=== PATIENT | male | born 1975 | race Caucasian/White ===

== ENCOUNTER → 2017-01-25 | Outpatient (CLI) | payer BC ==
[2017-01-25 17:20] LABS: CALCIUM 8.9 mg/dL (8.5-10.1); CREATININE 1.3 mg/dL (0.7-1.3); GFR 61.1; POTASSIUM 3.8 mmol/L (3.5-5.1)
== END | disposition home or self-care (01) ==
LOC: LAB 16:39
PROVIDERS: ATTEND Nurse Practitioner Occupational Health
DX: Z12.5 Encounter for screening for malignant neoplasm of prostate (principal); N40.1 Benign prostatic hyperplasia with lower urinary tract symptoms
CPT/HCPCS: 36415; 80048; G0103

== ENCOUNTER → 2019-05-03 | Outpatient (CLI) | payer BC ==
[~2019-05-03] MED LIST: IOHEXOL 300 MG/ML 100ML VIAL. IV ONE
--- NOTE | 2019-05-03 10:32 | KCIC ---
CT SOFT TISSUE NECK W/CONTRAST History: Right neck and right ear swelling Technique: CT imaging was performed of the neck soft tissues with contrast. Coronal and sagittal reconstructions were performed. Contrast: 70 mL Omnipaque 300 IV contrast. Exposure: One or more of the following individualized dose reduction techniques were utilized for this examination: 1. Automated exposure control 2. Adjustment of the mA and/or kV according to patient size 3. Use of iterative reconstruction technique. Comparison: None Findings: Normal appearance of the bilateral parotid, submandibular and thyroid glands. No pathologic lymphadenopathy. No significant soft tissue swelling or fluid collection within the right periauricular soft tissues or right neck. Imaged lung apices are unremarkable. Normal appearance of the oral cavity and pharynx. Mild bilateral maxillary sinus mucosal thickening. Mastoid air cells are clear. No pathologic osseous lesion. Imaged intracranial contents are unremarkable. Impression: 1. No acute pathology within the neck soft tissues. 2. Mild maxillary sinus disease. Electronically signed by: Bayron Lara DO (05/03/2019 10:29 AM) [email or web address]
== END | disposition home or self-care (01) ==
LOC: KCIC CT 09:07
PROVIDERS: ATTEND Family Medicine
DX: J32.0 Chronic maxillary sinusitis (principal); Z88.2 Allergy status to sulfonamides; Z88.8 Allergy status to other drugs, medicaments and biological substances
CPT/HCPCS: 70491; Q9967

== ENCOUNTER → 2022-01-11 | Outpatient (CLI) | payer BC ==
--- NOTE | 2022-01-11 08:23 | RAD ---
INDICATION: Reason: ABDOMEN PAIN / Spl. Instructions: / History: COMPARISON: November 2015 TECHNIQUE: Grayscale and color ultrasound images obtained through the abdomen. FINDINGS: Pancreas: Obscured by bowel gas. Liver: Echogenic. Gallbladder: Partially contracted. Definite stones not seen. Common Bile Duct: Not dilated. Right Kidney: No hydronephrosis. Left Kidney: No hydronephrosis. Spleen: Unremarkable. Aorta/IVC: Visualized portion unremarkable. IMPRESSION: * Liver is mildly echogenic. Nonspecific but can be seen with fatty infiltration. * Gallbladder is partially contracted without definite stones or common bile duct dilation Electronically signed by: Dhiraj Melara MD (01/11/2022 8:21 AM) [id number]
== END ==
LOC: US 07:33
PROVIDERS: ATTEND Family Medicine
DX: K82.0 Obstruction of gallbladder (principal)
CPT/HCPCS: 76700